=== PATIENT | male | born 1955 | race Caucasian/White ===

== ENCOUNTER 2017-05-18 18:38 | Inpatient (IN) | payer BC ==
[~2017-05-18] VITALS: Ht 185.4 cm; Wt 149.1 kg
[2017-05-18] VITALS (12 sets, daily range): BP systolic 70–97; BP diastolic 51–75; PULSE 71–83; TEMP 36.5; O2SAT 97–100; Ht 185.4 cm; Wt 149.1 kg
[~2017-05-18 18:38] MED LIST: AMLO-114 PO; DVN/160 PO; INDO50CA97 PO; METO1TAB31 PO; VARD20TA PO
[2017-05-18] MEDS ORDERED: SODIUM CHLORIDE 0.9% 1000ML 1,000 ML IV STA (18:42)
[2017-05-18] MEDS ORDERED: PROPOFOL IV EMULSION 10 MG/ML 100 ML VIAL IV ONE (18:53)
[2017-05-18] MEDS ORDERED: TERB250T47 PO (18:55)
[2017-05-18] MEDS ORDERED: ALLO300T2 PO (18:55)
[2017-05-18] MEDS ORDERED: AMLO-110 PO (18:55)
[2017-05-18] MEDS ORDERED: FENTANYL CITRATE INJ 50 MCG/1 ML 2 ML VIAL ONE (18:56)
[2017-05-18] MEDS ORDERED: NiCARDipine HCL INJ 2.5 MG/ML 10 ML AMP ONE (18:56)
[2017-05-18] MEDS ORDERED: MIDAZOLAM HCL 1 MG/ML 2ML VIAL ONE (18:56)
[2017-05-18] MEDS ORDERED: HEPARIN SOD (PORCINE) 1000 UNIT/ML 10 ML VIAL ONE ×2 (18:56→19:47)
[2017-05-18 18:57] LABS: HEMATOCRIT 44.1 % (42-52); MEAN CELL VOLUME 97.8 fL (80-100); MEAN CORPUSCULAR HEMOGLOBIN 33.5 pg (25-34); MEAN CORPUSCULAR HGB CONC 34.2 g/dl (32-36); MEAN PLATELET VOLUME 10.2 fL (7.4-10.4); PLATELET COUNT 207 K/uL (130-400); RED BLOOD COUNT 4.51 M/uL (4.7-6.1); WHITE BLOOD COUNT 17.52 K/uL (4.8-10.8)
[2017-05-18] MEDS ORDERED: NITROGLYCERIN/D5W 100MCG/ML 20ML SYR ONE (18:57)
[2017-05-18] MEDS ORDERED: PROPOFOL IV EMULSION 10 MG/ML 100 ML VIAL IV PRN (19:00)
[2017-05-18] MEDS ORDERED: OPTIRAY 320 IV PRN (19:00)
[2017-05-18 19:16] LABS: ALT/SGPT 260 U/L (12-78); BASO % 0.2 %; BASO ABS # 0.03 K/uL (0-0.2); BLOOD UREA NITROGEN 17 mg/dl (7-18); BUN/CREATININE RATIO 12.4 (10-20); CALCIUM 8.9 mg/dl (8.5-10.1); CARBON DIOXIDE 19 mmol/L (21-32); CHLORIDE 106 mmol/L (98-107); COMPLETE YES; EOS % 0.8 %; GLUCOSE 267 mg/dl (70-99); IG% 2.4 %; LYMPH % 26.9 %; LYMPH ABS # 4.71 K/uL (1.2-3.4); MONO % 5.4 %; NEUT % 64.3 %; POTASSIUM 3.9 mmol/L (3.5-5.1); SODIUM 141 mmol/L (136-145)
[2017-05-18 19:19] LABS: ALKALINE PHOSPHATASE 66 U/L (45-117); AST/SGOT 291 U/L (15-37)
[2017-05-18 19:21] LABS: PARTIAL THROMBOPLASTIN RATIO 0.9; PROTHROMBIN TIME (PATIENT) 10.3 SECONDS (9.0-12.0)
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
[2017-05-18] MEDS ORDERED: DOPamine 400MG / 250ML D5W ONE (19:45)
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
[2017-05-18] MEDS ORDERED: EPTIFIBATIDE 0.75 MG/ML 75MG VIAL IV ONE (20:03)
[2017-05-18] MEDS ORDERED: EPTIFIBATIDE 2 MG/ML 10 ML VIAL IV ONE (20:03)
[2017-05-18] MEDS ORDERED: PHENYLEPHRINE HCL INJ 10 MG/ML VIAL ONE (20:27)
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
[2017-05-18] MEDS ORDERED: CLOPIDOGREL BISULFATE 300 MG TAB PO STA ×3 (21:18→23:32)
[2017-05-18] MEDS ORDERED: PHENYLEPHRINE HCL INJ 20 MG in DEXTROSE 5% 500ML 500 ML IV PRN ×2 (21:18→22:30)
[2017-05-18] MEDS ORDERED: ASPIRIN 81 MG CHEW PO STA (21:18)
[2017-05-18] MEDS ORDERED: ONDANSETRON INJ 2 MG/ML 2 ML VIAL IV PRN (21:30)
[2017-05-18] MEDS ORDERED: EPTIFIBATIDE BOLUS / DRIP IV ONE (21:30)
[2017-05-18] MEDS ORDERED: ATORVASTATIN 40 MG TAB NG SCH (21:30)
[2017-05-18] MEDS ORDERED: ATROPINE SULFATE 0.1 MG/ML 5ML SYR IV PRN (21:30)
[2017-05-18] MEDS ORDERED: ATORVASTATIN 40 MG TAB PO STA (21:37)
[2017-05-18] MEDS ORDERED: ASPIRIN 81 MG CHEW NG STA (21:38)
[2017-05-18] MEDS ORDERED: LANSOPRAZOLE SOLUTAB 30 MG PO ONE (21:39)
[2017-05-18] MEDS ORDERED: MIDAZOLAM 125MG/250ML D5W 250 ML IV PRN (21:41)
[2017-05-18] MEDS ORDERED: PHENYLEPHRINE HCL INJ 20 MG in DEXTROSE 5% 500ML 500 ML IV STA (21:41)
[2017-05-18] MEDS ORDERED: DOPamine 400MG / D5W 400 MG IV STA (21:41)
[2017-05-18] MEDS ORDERED: FENTANYL 1250MCG/250ML NSS 250 ML IV SCH (21:45)
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
[2017-05-18 21:54] LABS: CHOLESTEROL 154 mg/dl (0-200); CHOLESTEROL/HDL RATIO 4.7; HDL CHOLESTEROL 33 mg/dl; TRIGLYCERIDES 349 mg/dl (0-150); VERY LOW DENSITY LIPOPROT CALC 70 mg/dl
[2017-05-18] MEDS ORDERED: FENTANYL CITRATE 1250MCG/250ML NSS ONE (21:56)
[2017-05-18] MEDS: NSS + 20MEQ KCL 1000ML 1,000 ML IV SCH (21:57)
[2017-05-18] MEDS ORDERED: VECURONIUM BROMIDE 10 MG VIAL IV PRN (22:00)
[2017-05-18 22:08] LABS: ISTAT ALLEN TEST Pass; ISTAT ARTERIAL BLOOD GAS HCO3 22 meq/L (19-24); ISTAT ARTERIAL BLOOD GAS PCO2 44 mmHg (35-46); ISTAT ARTERIAL BLOOD GAS PO2 155 mmHg (80-95); ISTAT ARTERIAL BLOOD GAS pH 7.31 (7.35-7.45); ISTAT CARBON DIOXIDE 24 mEq/l (24-31); ISTAT DELIVERY SYSTEM Ventilator; ISTAT FIO2 100 %; ISTAT PEEP 5; ISTAT RATE 23; ISTAT SITE L Radial; VE 12.3; Vt 600
[2017-05-18] MEDS ORDERED: PIPERACILL/TAZOBAC IV 4.5 GM in DEXTROSE 5% 100ML IV STA (22:10)
[2017-05-18] MEDS: FENTANYL 1250MCG/250ML NSS IV PRN (22:15)
[2017-05-18] MEDS ORDERED: DOPAMINE 400MG / D5W IV PRN (22:15)
[2017-05-18] MEDS ORDERED: PIPERACILL/TAZOBAC CONSULT ACTIVE PRN (22:15)
[2017-05-18 22:16] LABS: BASO % 0.1 %; BASO ABS # 0.01 K/uL (0-0.2); EOS % 0.1 %; IG% 1.4 %; LYMPH % 7.9 %; LYMPH ABS # 1.08 K/uL (1.2-3.4); MEAN CELL VOLUME 96.4 fL (80-100); MEAN CORPUSCULAR HEMOGLOBIN 33.9 pg (25-34); MONO % 8.7 %; NEUT % 81.8 %; PLATELET COUNT 218 K/uL (130-400); RED BLOOD COUNT 4.46 M/uL (4.7-6.1); WHITE BLOOD COUNT 13.74 K/uL (4.8-10.8)
[2017-05-18 22:20] LABS: COMPLETE YES; MEAN CORPUSCULAR HGB CONC 35.1 g/dl (32-36)
[2017-05-18] MEDS ORDERED: RANITIDINE IV 50 MG in DEXTROSE 5% 100ML 100 ML IV STA (22:37)
[2017-05-18 22:41] LABS: BUN/CREATININE RATIO 15.6 (10-20); CALCIUM 8.7 mg/dl (8.5-10.1); CREATININE 1.2 mg/dl (0.60-1.40); POTASSIUM 3.9 mmol/L (3.5-5.1)
[2017-05-18 22:42] LABS: MAGNESIUM 2.4 mg/dl (1.8-2.4); THYROID STIMULATING HORMONE 11.4 uIu/ml (0.300-4.500)
[2017-05-18] MEDS ORDERED: VANCOMYCIN INJ 2,800 MG in SODIUM CHLORIDE 0.9% 500ML 500 ML IV SCH (23:00)
[2017-05-18] MEDS ORDERED: ASPIRIN 324 MG CHEW ONE (23:34)
[2017-05-19] VITALS (33 sets, daily range): BP systolic 87–113; BP diastolic 44–79; PULSE 70–98; TEMP 36.7–37.4; O2SAT 94–100
[2017-05-19] MEDS ORDERED: PIPERACILL/TAZOBAC IV 3.375 GM in DEXTROSE 5% 100ML 100 ML IV SCH ×2
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
[2017-05-19] MEDS ORDERED: VANCOMYCIN CONSULT ACTIVE PRN (01:30)
[2017-05-19] MEDS: PIPERACILL/TAZOBAC IV 4.5 GM in DEXTROSE 5% 100ML IV SCH ×3 (02:12→18:51)
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
[2017-05-19 05:30] LABS: BASO % 0.1 %; BASO ABS # 0.01 K/uL (0-0.2); COMPLETE YES; EOS % 0.2 %; HEMATOCRIT 39.3 % (42-52); IG% 0.9 %; LYMPH % 10.1 %; LYMPH ABS # 1.19 K/uL (1.2-3.4); MEAN CORPUSCULAR HEMOGLOBIN 32.7 pg (25-34); MEAN CORPUSCULAR HGB CONC 33.3 g/dl (32-36); MEAN PLATELET VOLUME 10.1 fL (7.4-10.4); MONO % 7.5 %; NEUT % 81.2 %; PLATELET COUNT 226 K/uL (130-400); RED BLOOD COUNT 4.01 M/uL (4.7-6.1); WHITE BLOOD COUNT 11.74 K/uL (4.8-10.8)
[2017-05-19] MEDS ORDERED: RANITIDINE IV 50 MG in DEXTROSE 5% 100ML 100 ML IV SCH (06:00)
[2017-05-19 06:06] LABS: BUN/CREATININE RATIO 20.2 (10-20); POTASSIUM 4.3 mmol/L (3.5-5.1)
[2017-05-19] MEDS ORDERED: PERFLUTREN LIPID MICROSPHERE (DEFINITY) IV ONE (06:38)
[2017-05-19] MEDS: PHENYLEPHRINE HCL INJ 40 MG in DEXTROSE 5% 500ML 500 ML IV PRN ×2 (07:30→15:21)
[2017-05-19] MEDS: FENTANYL 1250MCG/250ML NSS IV PRN (07:31)
[2017-05-19 08:02] LABS: ESTIMATED AVERAGE GLUCOSE 140 mg/dl; HA1C FLAG Normal (Normal)
--- NOTE | 2017-05-19 08:19 | DIAGNOSTIC IMAGING REPORT ---
CHEST ONE VIEW PORTABLE CLINICAL HISTORY: Post catheterization. COMPARISON STUDY: Chest CT May 18, 2017. FINDINGS: The tip of the endotracheal tube is 5.3 cm above the bassem. The tip of the nasogastric tube is below the lower aspect of this image but at least within the body of the stomach. There is no pneumothorax. Cardiomegaly is unchanged. Exam is compromised by motion artifact. There is no pneumothorax. There is no radiographic evidence of pulmonary edema. There are bibasilar opacities. There is an equivocal left pleural effusion which is likely due to epicardial fat as shown on CT. IMPRESSION: 1. Tip of endotracheal tube 5.3 cm above the bassem. 2. Bibasilar opacities which favor atelectasis, similar to prior CT of May 18, 2017. 3. No radiographic evidence of pulmonary edema. Stable cardiomegaly. Electronically signed by: Demetri Carey M.D. 05/19/2017 8:18 AM Dictated Date/Time: 05/19/2017 8:14 AM
[2017-05-19] MEDS: PANTOprazole INJ 40 MG in SYRINGE 0 ML IV SCH ×2 (08:50→21:16)
[2017-05-19] MEDS: ASPIRIN 81 MG ECTAB PO SCH (08:51)
[2017-05-19] MEDS: ATORVASTATIN 40 MG TAB PO SCH (08:51)
[2017-05-19] MEDS: CLOPIDOGREL BISULFATE 75 MG TAB PO SCH (08:52)
[2017-05-19] MEDS ORDERED: VANCOMYCIN INJ 1,000 MG in SODIUM CHLORIDE 0.9% 250ML 250 ML IV SCH (09:00)
[2017-05-19] MEDS ORDERED: LANSOPRAZOLE SOLUTAB 30 MG PO SCH (09:00)
[2017-05-19] MEDS ORDERED: ARTIFICIAL TEARS OP SOLN OP SCH ×2 (09:00)
[2017-05-19] MEDS ORDERED: CHLORHEXIDINE GLUCONATE 0.12% 480 ML MT SCH (09:00)
[2017-05-19 10:05] LABS: ISTAT HEMOGLOBIN 15.3 g/dl (14.0-18.0); ISTAT IONIZED CALCIUM 1.22 mmol/l (1.12-1.32)
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
[2017-05-19] MEDS: EPTIFIBATIDE INJ 75 MG PREMIXED IV SCH ×2 (10:40)
[2017-05-19 10:49] LABS: ISTAT ALLEN TEST Pass; ISTAT ARTERIAL BLOOD GAS HCO3 24 meq/L (19-24); ISTAT ARTERIAL BLOOD GAS PCO2 48 mmHg (35-46); ISTAT ARTERIAL BLOOD GAS PO2 93 mmHg (80-95); ISTAT ARTERIAL BLOOD GAS pH 7.31 (7.35-7.45); ISTAT CARBON DIOXIDE 26 mEq/l (24-31); ISTAT DELIVERY SYSTEM Ventilator; ISTAT FIO2 50 %; ISTAT PEEP 5; ISTAT RATE 20; ISTAT SITE L Radial; VE 10.7; Vt 600
--- NOTE | 2017-05-19 10:51 | Endo History and Physical ---
History & Physical Date of Service: May 19, 2017. Chief Complaint: GI bleed Referring Physician: History of Present Illness NG drainage with yancy blood. Pt intubated. Past Surgical History Hx Cardiac Surgery: No Hx Abdominal Surgery: No Hx Post-Op Nausea and Vomiting: No Hx Cancer Surgery: Yes (SKIN CANCER REMOVED FROM FACE.) Hx Thoracic Surgery: No Hx Orthopedic: Yes (KNEE PROCEDURE) Hx Urinary Tract Surgery: Yes (CYSTO WITH STENT) Social History Smoking Status: Never Smoker Hx Substance Use: No Hx Alcohol Use: Yes (SOCIAL. BEER [employer] WHISKEY) Allergies Coded Allergies: No Known Allergies (Unverified , 05/18/17) Current Medications Reported Home Medications Medications Dose Route/Sig Max Daily Dose Days Date Category Dose Instructions Terbinafine Hcl 250 Mg Tab 250 Mg PO DAILY 05/18/17 Reported Zyloprim (Allopurinol) 300 Mg Tab 300 Mg PO DAILY 05/18/17 Reported Norvasc (Amlodipine Besylate) 5 Mg Tab 5 Mg PO DAILY 05/18/17 Reported Indocin (Indomethacin) 50 Mg Cap 50 Mg PO TID PRN 02/03/13 Reported WITH FOOD UNTIL PAIN RESOLVES Levitra (Vardenafil Hcl) 20 Mg Tab 20 Mg PO DIRECTED 02/03/13 Reported Toprol Xl (Metoprolol Succinate) 25 Mg Tab 25 Mg PO DAILY 02/03/13 Reported Diovan (Valsartan) 160 Mg Tab 160 Mg PO DAILY 02/03/13 Reported Vital Signs Weight (Kilograms): 156.600 Height (Feet): 6 Height (Inches): 1.00 Date Time Temp Pulse Resp B/P (MAP) Pulse Ox O2 Delivery O2 Flow Rate FiO2 05/19/17 07:24 60 05/19/17 06:46 73 20 99/68 (86) 99 05/19/17 06:31 76 20 89/60 (69) 96 05/19/17 06:16 73 20 93/62 (71) 99 05/19/17 06:01 74 20 87/57 (70) 97 05/19/17 05:46 75 20 94/59 (76) 98 05/19/17 05:31 75 20 93/63 (67) 100 05/19/17 05:23 60 05/19/17 05:16 73 20 89/61 (67) 100 05/19/17 05:01 75 20 91/64 (70) 99 05/19/17 04:46 75 20 93/60 (70) 99 05/19/17 04:31 75 20 104/70 (77) 100 05/19/17 04:16 76 20 105/77 (82) 99 05/19/17 04:01 75 20 113/74 (81) 99 05/19/17 04:00 80 05/19/17 04:00 80 05/19/17 04:00 36.7 05/19/17 03:46 73 20 101/67 (74) 99 05/19/17 03:32 73 20 104/44 (73) 100 05/19/17 03:16 73 20 95/69 (80) 99 05/19/17 03:01 74 20 94/65 (75) 100 05/19/17 02:46 75 20 96/69 (78) 100 05/19/17 02:31 74 20 88/68 (73) 99 05/19/17 02:16 74 20 91/69 (78) 99 05/19/17 02:10 75 20 88/67 (74) 99 Mechanical Ventilator 80 05/19/17 01:46 75 20 91/62 (71) 99 05/19/17 01:35 74 20 98/65 (75) 98 05/19/17 01:16 72 20 88/63 (72) 99 05/19/17 01:01 72 22 91/68 (73) 99 05/19/17 00:46 73 21 93/68 (78) 99 05/19/17 00:31 70 20 89/63 (70) 99 05/19/17 00:16 74 20 88/62 (69) 100 05/19/17 00:01 80 05/19/17 00:01 71 21 88/61 (73) 99 05/19/17 00:01 80 05/18/17 23:46 71 20 93/63 (71) 99 05/18/17 23:30 75 20 86/59 (69) 97 05/18/17 23:27 80 05/18/17 23:24 78 20 78/62 (67) 98 05/18/17 23:16 78 21 78/56 (58) 98 05/18/17 23:01 76 20 88/68 (74) 99 05/18/17 22:46 78 20 84/66 (71) 98 05/18/17 22:31 75 20 86/64 (74) 98 05/18/17 22:24 75 20 84/57 (64) 98 05/18/17 22:16 90 05/18/17 22:15 75 20 74/55 (59) 98 05/18/17 21:55 78 20 83/59 (62) 100 05/18/17 21:15 36.5 83 24 97/75 99 Mechanical Ventilator 100 05/18/17 21:05 91 16 104/65 (78) 100 Mechanical Ventilator 05/18/17 20:50 100 16 112/65 (81) 100 Mechanical Ventilator 05/18/17 20:40 100 05/18/17 19:00 96 16 119/109 95 Mechanical Ventilator 05/18/17 18:50 132 05/18/17 18:40 96 16 160/111 95 Mechanical Ventilator 05/18/17 18:40 97 Mechanical Ventilator Physical Exam General Appearance: WD/WN Respiratory/Chest: Respiratory effort: pertinent finding (Patient intubated) Cardiovascular: Heart Auscultation: RRR, pertinent finding (Recent NE) Abdomen: Bowel Sounds: normal Inspection & Palpation: soft, no masses Assessment and Plan EGD in ICU with patient intubated.
[2017-05-19] MEDS ORDERED: PANTOprazole INJ 40 MG in SYRINGE 0 ML IV SCH (11:00)
--- NOTE | 2017-05-19 11:35 | ECHOCARDIOGRAM REPORT ---
*NOTICE TO RECEIVING CONSTITUTION PARTY AGENCY This information is strictly Confidential and protected under [place] law. [place] law prohibits you from making any further disclosure of this information unless further disclosure is expressly permitted by the written consent of the person to whom it pertains or is authorized by law. A general authorization for the release of medical or other information is not sufficient for this purpose. Hospital accepts no responsibility if the information is made available to any other person, INCLUDING THE PATIENT. Interpretation Summary * Name: MINERVA BARRIGA Study Date: 05/19/2017 06:11 AM BP: 105/77 mmHg * [facility] HR: 75 * : 1955 (M/d/yyyy) Gender: Male Height: 75 in * Age: 61 yrs Ethnicity: CA Weight: 359 lb * Ordering Physician: Ken Birmingham MD, [facility] * Performed By: Vickie Quintanilla * * Reason For Study: AMI * BSA: 2.8 m2 * -- Conclusions -- * Image quality was sub-optimal and limited views were obtained. * The left ventricle is mildly dilated. * There is mild asymmetric left ventricular hypertrophy. * Left ventricular systolic function is mildly reduced. * There are regional wall motion abnormalities as specified. * The right ventricle is moderately dilated. * The right ventricular systolic function is normal as assessed by tricuspid annular plane systolic excursion (TAPSE) (normal >1.5 cm). Procedure Details * A complete two-dimensional transthoracic echocardiogram was performed (2D, M-mode, Doppler and color flow Doppler). * The study was technically difficult. * There were technical limitations due to patient'ssupine positioning while on mechanical ventilation * A contrast injection of Definity was performed to improve assessment of LV function. * Contrast was injected into an intravenous site in the right arm. * One vial of Definity ultrasound contrast was diluted in normal saline to a total volume of 10 ml. A total of '4' ml of solution was administered during imaging. * Lot # [id number] of Definity utilized for procedure. * Expiration date 05/28. Left Ventricle * The left ventricle is mildly dilated. * There is mild asymmetric left ventricular hypertrophy. * Ejection Fraction = 45-50%. * Left ventricular systolic function is mildly reduced. * There are regional wall motion abnormalities as specified. * Septum and portions of the anterior wall appear hypokinetic. Inferior wall not well visualized. Right Ventricle * The right ventricle is moderately dilated. * The right ventricular systolic function is normal as assessed by tricuspid annular plane systolic excursion (TAPSE) (normal >1.5 cm). Atria * The left atrium is not well visualized. * Right atrium not well visualized. Mitral Valve * The mitral valve is grossly normal. * Significant mitral regurgitation is absent. Tricuspid Valve * The tricuspid valve is not well visualized. Aortic Valve * The aortic valve is not well visualized. * No hemodynamically significant valvular aortic stenosis. * There is no significant aortic regurgitation. Pericardium/Pleural * There is no pericardial effusion. MMode 2D Measurements and Calculations IVSd 0.58 cm IVSs 1.4 cm LVIDd 5.8 cm LVIDs 4.4 cm LVPWd 1.5 cm LVPWs 1.7 cm IVS/LVPW 0.39 FS 24.2 % EDV(Teich) 169.4 ml ESV(Teich) 89.1 ml EF(Teich) 47.4 % EDV(cubed) 199.5 ml ESV(cubed) 87.0 ml EF(cubed) 56.4 % % IVS thick 148.8 % % LVPW thick 11.7 % LV mass(C)d 244.5 grams LV mass(C)dI 86.9 grams/m\S\2 LV mass(C)s 281.6 grams LV mass(C)sI 100.1 grams/m\S\2 CO(Teich) 5.9 l/min CI(Teich) 2.1 l/min/m\S\2 SV(Teich) 80.3 ml SI(Teich) 28.5 ml/m\S\2 CO(cubed) 8.3 l/min CI(cubed) 3.0 l/min/m\S\2 SV(cubed) 112.6 ml SI(cubed) 40.0 ml/m\S\2 asc Aorta Diam 3.6 cm LVOT diam 2.1 cm LVOT area 3.4 cm\S\2 LVAd ap4 33.1 cm\S\2 LVLd ap4 8.6 cm EDV(MOD-sp4) 105.0 ml LVAs ap4 20.6 cm\S\2 LVLs ap4 6.7 cm ESV(MOD-sp4) 54.8 ml EF(MOD-sp4) 47.8 % CO(MOD-sp4) 3.7 l/min CI(MOD-sp4) 1.3 l/min/m\S\2 SV(MOD-sp4) 50.2 ml SI(MOD-sp4) 17.8 ml/m\S\2 Doppler Measurements and Calculations MV E max teagan 51.4 cm/sec MV A max teagan 58.3 cm/sec MV E/A 0.88 MV dec time 0.26 sec Ao V2 max 144.6 cm/sec Ao max PG 8.4 mmHg Ao max PG (full) 6.8 mmHg MILA(V,A) 1.5 cm\S\2 MILA(V,D) 1.5 cm\S\2 LV V1 max PG 1.6 mmHg LV V1 max 62.7 cm/sec PA V2 max 60.6 cm/sec PA max PG 1.5 mmHg PI end-d teagan 124.9 cm/sec
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
[2017-05-19] MEDS: VANCOMYCIN INJ 2,600 MG in SODIUM CHLORIDE 0.9% 500ML 500 ML IV SCH ×2 (13:21→22:48)
[2017-05-19] MEDS ORDERED: Integrelin infusion --> STOP ORDER ONE (15:00)
[2017-05-19] MEDS: NSS + 20MEQ KCL 1000ML 1,000 ML IV SCH (15:20)
--- NOTE | 2017-05-19 15:26 | CARDIOLOGY PROGRESS NOTE ---
DATE: 05/19/2017 SUBJECTIVE: The patient was seen by me today in his intensive care unit room. He is currently being weaned off sedation in attempts at extubating him. He was awake at the time of my exam. He was able to answer questions by nodding his head. He denies any chest pain or dyspnea. He denies abdominal pain or nausea. He denies any pains. CURRENT MEDICATIONS: Include vancomycin 2600 mg IV q. 12 hours, aspirin 81 mg daily, clopidogrel 75 mg daily, atorvastatin 80 mg daily, Peridex oral solution 15 mL daily, artificial tears daily, pantoprazole 40 mg IV b.i.d., intravenous phenylephrine, piperacillin/tazobactam 4.5 grams IV q. 8 hours, intravenous fentanyl, intravenous Versed and intravenous Integrilin. The Integrilin is scheduled to be discontinued at 03:00 p.m. today. ALLERGIES AND ADVERSE DRUG REACTIONS: None. Intake and output today 3603/1450. Monitor reveals sinus rhythm. Monitor history since admission to the intensive care unit reveals 2 episodes of nonsustained accelerated idioventricular rhythm and ventricular tachycardia. No sustained ventricular arrhythmias. Occasional premature ventricular beat. Rare ventricular couplets. PHYSICAL EXAMINATION: CURRENT VITAL SIGNS: Revealed pulse 80, pulse oximetry 100%, and blood pressure 110/71. GENERAL: The patient is lying in his bed. He still endotracheally intubated. He is awake and responsive. He appears to be in no distress. NECK: No obvious jugular venous distention. Difficult to evaluate jugular venous pressure secondary to neck size. LUNGS: No rales or wheezes anterolaterally. No rhonchi. HEART: Distant heart sounds. Regular rate and rhythm. S1 and S2 normal. No S3 or S4. No murmur or rub. ABDOMEN: Obese. Soft. Nontender. No palpable masses or organomegaly. EXTREMITIES: Right radial catheterization site without bleeding. The right radial pulse strongly palpable. No evidence for arterial insufficiency in right hand. 1+ pretibial edema bilaterally. NEUROLOGIC: The patient is moving all extremities. He is awake and alert. DIAGNOSTIC STUDIES: Echocardiogram performed today and reviewed by me shows mildly reduced overall left ventricular systolic function. The ejection fraction approximately 50%. No definite inferior wall or posterolateral wall motion abnormalities. Moderate right ventricular dilatation. On visual interpretation, the RV systolic function appears to be reduced. However, the tricuspid annular plain systolic excursion was normal. The study was technically difficult. Tricuspid valve poorly visualized. Inferior vena cava poorly visualized. Electrocardiogram performed post procedure last evening showed normal sinus rhythm, incomplete right bundle branch block, left axis deviation, left anterior fascicular block, and slight ST segment elevation in the inferior leads. Electrocardiogram performed this morning with normal sinus rhythm, left axis deviation, inferior HI, and poor R-wave progression in V1-V6. Nonspecific ST and T wave abnormalities. LABORATORY DATA: Today with WBC 11.74, hemoglobin 13.1, hematocrit 39.3, and platelet count 226. Metabolic profile with sodium 141, potassium 4.2, chloride 109, carbon dioxide 24, BUN 20, creatinine 1.0, and random glucose 157. Peak troponin I was at 05:06 a.m. this morning. It was 24. Troponin I at 01:17 p.m. today is 20.9. TSH 11.400. Lipid profile performed yesterday with triglycerides 349, total cholesterol 154, direct LDL 90, and HDL 33. Hemoglobin A1c 6.5. EGD was performed today by Dr. Wharton. It revealed clotted blood in the gastric fundus. It was felt that the patient had a Dieulafoy lesion with no bleeding. The area was injected with epinephrine. Also, cautery performed. Duodenum examined was normal. No active bleeding was noted. ASSESSMENT: 1. Status post acute inferior myocardial infarction secondary to total proximal PDA occlusion. Successful intervention to the PDA occlusion. Deployment of 2 drug-eluting stents. 2. Cardiac arrest complicating initial presentation. Successful out of hospital resuscitation and defibrillation. Since admission, no sustained ventricular arrhythmias. Nonsustained ventricular arrhythmias have been noted. 3. No evidence of any significant atrioventricular block. 4. Borderline low blood pressure. The patient has been on sedation. This is currently being weaned and discontinued. The medications may be contributing to his hypertension. He is still on low dose phenylephrine. 5. GI bleeding. EGD results as above. Hemoglobin relatively stable since admission. Platelet count is stable. 6. No evidence of congestive heart failure on exam in regards to pulmonary vascular congestion. Chest x-ray today reviewed by me. No evidence of congestive heart failure. Poor inspiratory effort. 7. Elevated hemoglobin A1c. 8. Elevated triglyceride level and low HDL. 9. Echocardiogram with right ventricular dilatation and probable systolic dysfunction. Suspect the patient has underlying significant obstructive sleep apnea. 10. Good overall left ventricular systolic function. RECOMMENDATIONS: 1. Continue aspirin and clopidogrel. 2. Continue atorvastatin. 3. If his blood pressure is stable after discontinuation of intravenous sedation, discontinue the phenylephrine. 4. Ultimately would like to discharge the patient on beta giovanny and angiotensin receptor giovanny therapy. He was on an angiotensin receptor giovanny therapy and beta giovanny therapy at the time of admission. 5. Extubation is being carried under the direction of Dr. Bauer. CINTHIA
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
[2017-05-19 15:46] LABS: HEMATOCRIT 32.7 % (42-52)
[2017-05-19 16:12] LABS: ISTAT ALLEN TEST Pass; ISTAT ARTERIAL BLOOD GAS HCO3 23 meq/L (19-24); ISTAT ARTERIAL BLOOD GAS PCO2 42 mmHg (35-46); ISTAT ARTERIAL BLOOD GAS PO2 69 mmHg (80-95); ISTAT ARTERIAL BLOOD GAS pH 7.34 (7.35-7.45); ISTAT CARBON DIOXIDE 24 mEq/l (24-31); ISTAT DELIVERY SYSTEM Ventilator; ISTAT FIO2 40 %; ISTAT PEEP 5; ISTAT SITE L Radial
[2017-05-20] VITALS (10 sets, daily range): BP systolic 111–134; BP diastolic 62–80; PULSE 77–95; TEMP 36.8–37; O2SAT 93–99
[2017-05-20] MEDS: PIPERACILL/TAZOBAC IV 4.5 GM in DEXTROSE 5% 100ML IV SCH ×4 (01:45→18:25)
[2017-05-20] MEDS: NSS + 20MEQ KCL 1000ML 1,000 ML IV SCH (01:45)
[2017-05-20 05:51] LABS: BASO % 0.2 %; BASO ABS # 0.02 K/uL (0-0.2); COMPLETE YES; EOS % 1.6 %; HEMATOCRIT 32.1 % (42-52); IG% 0.4 %; LYMPH % 11.8 %; LYMPH ABS # 1.06 K/uL (1.2-3.4); MEAN CELL VOLUME 97.6 fL (80-100); MEAN CORPUSCULAR HEMOGLOBIN 32.5 pg (25-34); MEAN CORPUSCULAR HGB CONC 33.3 g/dl (32-36); MEAN PLATELET VOLUME 9.7 fL (7.4-10.4); MONO % 10.3 %; NEUT % 75.7 %; PLATELET COUNT 143 K/uL (130-400); RED BLOOD COUNT 3.29 M/uL (4.7-6.1)
[2017-05-20 06:37] LABS: BUN/CREATININE RATIO 14.7 (10-20); CALCIUM 7.6 mg/dl (8.5-10.1); CREATININE 0.87 mg/dl (0.60-1.40); POTASSIUM 3.7 mmol/L (3.5-5.1)
[2017-05-20] MEDS: ATORVASTATIN 40 MG TAB PO SCH (09:02)
[2017-05-20] MEDS: ASPIRIN 81 MG ECTAB PO SCH (09:02)
[2017-05-20] MEDS: CLOPIDOGREL BISULFATE 75 MG TAB PO SCH (09:03)
[2017-05-20] MEDS: PANTOprazole INJ 40 MG in SYRINGE 0 ML IV SCH (09:06)
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
[2017-05-20] MEDS ORDERED: NURSING VERBAL MED ORDER ONE (09:45)
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
[2017-05-20] MEDS ORDERED: VANCOMYCIN TROUGH SCH (10:30)
[2017-05-20] MEDS ORDERED: OXYCODONE/ACETAMINOPHEN 5-325 TAB PO PRN (10:30)
[2017-05-20] MEDS ORDERED: OXYCODONE/ACETAMINOPHEN 5-325 TAB ONE (10:33)
[2017-05-20] MEDS ORDERED: METOPROLOL SUCC 50MG EXT REL TAB PO ONE (11:30)
--- NOTE | 2017-05-20 11:40 | CARDIOLOGY PROGRESS NOTE ---
DATE: 05/20/2017 DATE: 05/20/2017 SUBJECTIVE: The patient was seen by me this morning in the intensive care unit room. He was successfully extubated yesterday afternoon. The patient is awake and alert, sitting in a chair by his bedside. He has no recollection of the events prompting his admission. His only memory of this hospitalization since yesterday afternoon when he was weaned off sedation and extubated. He denies any chest pain or other anginal type pains. No palpitations, lightheadedness, or syncope complaints since extubation yesterday. He denies any abdominal pain or nausea. No pain at his right radial catheterization site. No complaint of fevers or chills. No pulmonary complaints. He does complain of left lower leg pain. He did have an interosseous catheter in his left tibia inserted at the time of his resuscitation by EMS. No symptoms of bleeding. CURRENT MEDICATIONS: Pantoprazole 40 mg p.o. b.i.d., Percocet 5/325 one q. 6 hours p.r.n. pain, aspirin 81 mg daily, clopidogrel 75 mg daily, atorvastatin 80 mg daily, piperacillin/tazobactam 4.5 grams IV q. 8 hours. ALLERGIES AND ADVERSE DRUG REACTIONS: None. Monitor history over the past 24 hours reviewed by me. Sinus rhythm with occasional premature ventricular beat. PHYSICAL EXAMINATION: CURRENT VITAL SIGNS: With pulse 93. Monitor reveals sinus rhythm. Blood pressure 131/79. Pulse oximetry 93%. GENERAL APPEARANCE: Shows him to be in no distress. HEAD: Abrasion on the occiput of his head. No active bleeding. Dressing removed by me. There is actually no full skin thickness laceration. NECK: Thick. Unable to evaluate jugular venous pressure. LUNGS: Normal respiratory effort. Clear. No rales or wheezes. HEART: Regular rate and rhythm. S1, S2 normal. No S3 or S4. No murmur or rub. ABDOMEN: Soft. Obese. Periumbilical hernia. No palpable masses or organomegaly. EXTREMITIES: Right radial catheterization site without bleeding. Right radial pulse palpable. 1+ pretibial edema bilaterally. No cyanosis or clubbing. NEUROLOGIC: Awake and alert. He answers questions appropriately. He knows all of his family. He knows he is in the hospital. He can move all extremities. DATA: Electrocardiogram today with sinus rhythm, left axis deviation, incomplete right bundle branch block, inferior TX, poor R-wave progression V1 and V3. This could be secondary to lead placement and body habitus. Minor nonspecific ST and T-wave abnormalities. Echocardiogram performed yesterday with LV ejection fraction approximately 50%. LABORATORY DATA: WBC today 9.0, hemoglobin 10.7, hematocrit 32.1, platelet count 143. Metabolic profile -- sodium 140, potassium 3.7, chloride 106, carbon dioxide 28, BUN 13, creatinine 0.87, random glucose 136. Peak troponin I was 24.000. ASSESSMENT: 1. Status post acute inferior myocardial infarction secondary to total proximal patent ductus arteriosus occlusion. Subsequent successful intervention to the PDA occlusion with deployment of 2 drug-eluting stents. 2. No current complaints of any anginal type symptoms. 3. Good overall left ventricular systolic function. No evidence of congestive heart failure on exam. This is in regards to pulmonary vascular congestion. Suspect his pretibial edema is secondary to venous insufficiency. On echo by my interpretation, he also had right ventricular systolic dysfunction. 4. Cardiac arrest secondary to acute occlusion of the patent ductus arteriosus. Successful outpatient resuscitation. Since arrival to the hospital he has had no significant arrhythmias noted. No significant ventricular arrhythmias. No bradyarrhythmias. 5. No evidence of vascular complications at right radial catheterization site. 6. Successful extubation yesterday. He is oxygenating well on nasal cannula oxygen. No current pulmonary complaints. 7. His blood pressure has improved. He was taken off phenylephrine last night. Blood pressure mildly elevated today. 8. The patient had evidence of upper gastrointestinal bleeding when OG-tube was placed. Endoscopy performed yesterday revealed a blood clot in his stomach. No active bleeding was noted. The patient's hemoglobin has decreased since admission. This could reflect GI bleeding. No current complaints of bleeding. 9. Stable renal function post cardiac catheterization and cardiac arrest. RECOMMENDATIONS: 1. From a cardiac standpoint, the patient can be transferred to the telemetry unit. 2. Increase activity. 3. Continue aspirin, clopidogrel, and atorvastatin. 4. Restart beta giovanny therapy. The patient is on beta giovanny therapy at the time of admission. Will also restart angiotensin receptor giovanny therapy. 5. Continue to monitor hemoglobin. 6. The patient had an elevated TSH on labs yesterday. This will be followed up and managed by the hospitalist team. CINTHIA
[2017-05-20] MEDS: OXYCODONE/ACETAMINOPHEN 5-325 TAB PO PRN ×3 (12:30→23:42)
--- NOTE | 2017-05-20 13:46 | DIAGNOSTIC IMAGING REPORT ---
ULTRASOUND LEFT VENOUS DOPP LOWER EXT UNILAT CLINICAL HISTORY: Left lower extremity swelling COMPARISON STUDY: No previous studies for comparison. FINDINGS: Real-time and color flow Doppler imaging were performed. Flow was seen within the femoral, popliteal and calf veins with no intraluminal thrombus demonstrated. The saphenous vein is patent. There is a complex cystic collection located anterior to the proximal knee measuring 41 x 17 x 43 mm. IMPRESSION: 1. No evidence of left lower extremity DVT. 2. Complex cystic collection located anterior to the proximal knee measuring 41 x 17 x 43 mm. Electronically signed by: Andrew Mason M.D. 05/20/2017 1:45 PM Dictated Date/Time: 05/20/2017 1:43 PM
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
[2017-05-20] MEDS: PANTOprazole SOD 40 MG TAB PO SCH (19:46)
[2017-05-21] VITALS (11 sets, daily range): BP systolic 111–145; BP diastolic 61–79; PULSE 77–87; TEMP 36.5–37.6; O2SAT 91–98
[2017-05-21] MEDS: PIPERACILL/TAZOBAC IV 4.5 GM in DEXTROSE 5% 100ML IV SCH ×2 (01:47→09:46)
[2017-05-21 05:28] LABS: BASO % 0.1 %; BASO ABS # 0.01 K/uL (0-0.2); COMPLETE YES; EOS % 1.1 %; HEMATOCRIT 30.2 % (42-52); IG% 0.4 %; LYMPH % 9.5 %; LYMPH ABS # 0.91 K/uL (1.2-3.4); MEAN CELL VOLUME 96.8 fL (80-100); MEAN CORPUSCULAR HEMOGLOBIN 32.4 pg (25-34); MEAN CORPUSCULAR HGB CONC 33.4 g/dl (32-36); MEAN PLATELET VOLUME 10.1 fL (7.4-10.4); MONO % 9.7 %; NEUT % 79.2 %; PLATELET COUNT 138 K/uL (130-400); RED BLOOD COUNT 3.12 M/uL (4.7-6.1); WHITE BLOOD COUNT 9.58 K/uL (4.8-10.8)
[2017-05-21 05:55] LABS: BUN/CREATININE RATIO 11.9 (10-20); CREATININE 0.75 mg/dl (0.60-1.40); POTASSIUM 3.4 mmol/L (3.5-5.1)
[2017-05-21] MEDS: CLOPIDOGREL BISULFATE 75 MG TAB PO SCH (07:58)
[2017-05-21] MEDS: ASPIRIN 81 MG ECTAB PO SCH (07:58)
[2017-05-21] MEDS: ATORVASTATIN 40 MG TAB PO SCH (07:58)
[2017-05-21] MEDS: VALSARTAN 80 MG TAB PO SCH (07:58)
[2017-05-21] MEDS: PANTOprazole SOD 40 MG TAB PO SCH ×2 (07:59→20:16)
[2017-05-21] MEDS: METOPROLOL SUCC 50MG EXT REL TAB PO SCH (07:59)
[2017-05-21] MEDS: OXYCODONE/ACETAMINOPHEN 5-325 TAB PO PRN ×2 (09:46→23:47)
--- NOTE | 2017-05-21 10:50 | DIAGNOSTIC IMAGING REPORT ---
CHEST ONE VIEW PORTABLE CLINICAL HISTORY: pneumonia COMPARISON STUDY: 05/19/2017 FINDINGS: The right-sided PICC catheter is unchanged in position. The endotracheal tube and nasogastric tube have been removed. The heart remains enlarged. Evaluation is difficult due to the patient's large body habitus. There are persistent but improving left basilar airspace opacities.[ IMPRESSION: 1. Interval removal of the endotracheal tube and nasogastric tube 2. Persistent cardiomegaly 3. Improving left basilar airspace opacities Electronically signed by: Andrew Mason M.D. 05/21/2017 10:48 AM Dictated Date/Time: 05/21/2017 10:47 AM
[2017-05-21] MEDS ORDERED: POTASSIUM CHLORIDE 10 MEQ TABCR PO ONE (11:00)
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
[2017-05-21 11:17] LABS: URINE APPEARANCE CLEAR (CLEAR); URINE BILIRUBIN NEG (NEG); URINE COLOR DK YELLOW; URINE NITRITE NEG (NEG); URINE PH 5.5 (4.5-7.5); URINE SPECIFIC GRAVITY 1.024 (1.000-1.030); UROBILINOGEN NEG (NEG); ZZURINE CULT IF INDIC CATH NO
[2017-05-21 11:19] LABS: MANUAL MICROSCOPIC REQUIRED? NO; REVIEW REQ? NO
--- NOTE | 2017-05-21 14:29 | DIAGNOSTIC IMAGING REPORT ---
LEFT KNEE 3 VIEWS CLINICAL HISTORY: left knee pain pain COMPARISON: None. DISCUSSION: Moderate degenerative change all major joint compartments. Prepatellar soft tissue edematous change with evidence for soft tissue calcifications. This potentially relates to calcification of an old posttraumatic hematoma. No acute bony abnormality generalized soft tissue edema. IMPRESSION: Generalized degenerative change with no acute bony pathology. 2. Small joint effusion. 3. Prepatellar soft tissue edematous change with associated dystrophic calcifications. This potentially relates to calcification of an old posttraumatic hematoma. The above report was generated using voice recognition software. It may contain grammatical, syntax or spelling errors. Electronically signed by: Taqueria Norton M.D. 05/21/2017 2:28 PM Dictated Date/Time: 05/21/2017 2:26 PM
[2017-05-21] MEDS: AMOXICILLIN/CLAVULANATE TAB 875 MG TAB PO SCH (16:50)
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
[2017-05-22] VITALS (8 sets, daily range): BP systolic 117–133; BP diastolic 54–90; PULSE 80–95; TEMP 36.7–37.8; O2SAT 92–100
[2017-05-22] MEDS: PANTOprazole SOD 40 MG TAB PO SCH ×2 (08:05→20:10)
[2017-05-22] MEDS: CLOPIDOGREL BISULFATE 75 MG TAB PO SCH (08:05)
[2017-05-22] MEDS: METOPROLOL SUCC 50MG EXT REL TAB PO SCH (08:05)
[2017-05-22] MEDS: ATORVASTATIN 40 MG TAB PO SCH (08:05)
[2017-05-22] MEDS: ALLOPURINOL 300 MG TAB PO SCH (08:05)
[2017-05-22] MEDS: ASPIRIN 81 MG ECTAB PO SCH (08:06)
[2017-05-22] MEDS: VALSARTAN 80 MG TAB PO SCH (08:06)
[2017-05-22] MEDS: AMOXICILLIN/CLAVULANATE TAB 875 MG TAB PO SCH ×2 (08:06→16:55)
--- NOTE | 2017-05-22 10:06 | CARDIOLOGY PROGRESS NOTE ---
DATE: 05/22/2017 SUBJECTIVE: Mr. Olivas is resting comfortably in bedside chair without complaints of chest pain or dyspnea. Slept well last evening. OBJECTIVE: VITAL SIGNS: Blood pressure is 124/75 with a regular pulse of 95. Respiratory rate is 20. The patient is afebrile at 37.4 degrees Celsius. Saturations 94% on room air. NECK: Supple with full carotid upstrokes. There are no carotid bruits. Jugular venous pressure is flat at 90 degrees. There is no thyromegaly. CARDIOVASCULAR: Reveals a regular rhythm with normal S1 and S2. Heart sounds are distant. No obvious murmurs. LUNGS: Clear without rales, rhonchi, or wheezes. ABDOMEN: Obese without bruits. EXTREMITIES: Reveal intact radial artery pulses bilaterally. Trace pretibial edema is noted. DATA: equipment monitor phototypesetting is benign. IMPRESSION AND PLAN: 1. Status post acute inferior wall myocardial infarction -- Dr. Birmingham placed 2 drug-eluting stents in the posterior descending artery. The patient is stable on aspirin, Plavix, atorvastatin, metoprolol succinate, and valsartan. No changes today. 2. Status post cardiac arrest -- patient has recovered well. 3. Hypertension -- controlled. 4. Diabetes mellitus. 5. Obstructive sleep apnea.
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
[2017-05-22 17:11] LABS: CALCIUM 8.3 mg/dl (8.5-10.1); CREATININE 0.88 mg/dl (0.60-1.40); POTASSIUM 3.2 mmol/L (3.5-5.1)
[2017-05-22] MEDS ORDERED: POTASSIUM CHLORIDE 10 MEQ TABCR PO ONE (20:00)
[2017-05-23 04:20] VITALS: BP 133/78; PULSE 82; TEMP 37.3; O2SAT 95
[2017-05-23 06:34] LABS: HEMATOCRIT 30.8 % (42-52); MEAN CELL VOLUME 96.6 fL (80-100); MEAN CORPUSCULAR HGB CONC 33.1 g/dl (32-36); MEAN PLATELET VOLUME 8.9 fL (7.4-10.4); PLATELET COUNT 193 K/uL (130-400); RED BLOOD COUNT 3.19 M/uL (4.7-6.1); WHITE BLOOD COUNT 8.69 K/uL (4.8-10.8)
[2017-05-23 07:43] VITALS: BP 128/84; PULSE 81; TEMP 36.8; O2SAT 97
[2017-05-23 08:03] LABS: BUN/CREATININE RATIO 13.6 (10-20); CALCIUM 8.2 mg/dl (8.5-10.1); CREATININE 0.75 mg/dl (0.60-1.40); POTASSIUM 3.4 mmol/L (3.5-5.1); URIC ACID 5.2 mg/dl (2.6-7.2)
[2017-05-23] MEDS: PANTOprazole SOD 40 MG TAB PO SCH ×2 (08:10→20:23)
[2017-05-23] MEDS: ALLOPURINOL 300 MG TAB PO SCH (08:10)
[2017-05-23] MEDS: CLOPIDOGREL BISULFATE 75 MG TAB PO SCH (08:10)
[2017-05-23] MEDS: ASPIRIN 81 MG ECTAB PO SCH (08:10)
[2017-05-23] MEDS: ATORVASTATIN 40 MG TAB PO SCH (08:10)
[2017-05-23] MEDS: METOPROLOL SUCC 50MG EXT REL TAB PO SCH (08:10)
[2017-05-23] MEDS: VALSARTAN 80 MG TAB PO SCH (08:11)
[2017-05-23] MEDS: AMOXICILLIN/CLAVULANATE TAB 875 MG TAB PO SCH (08:11)
[2017-05-23] MEDS: OXYCODONE/ACETAMINOPHEN 5-325 TAB PO PRN ×2 (08:47→20:24)
[2017-05-23] MEDS ORDERED: OXYC-57 PO (08:57)
[2017-05-23] MEDS ORDERED: PRT40 PO (08:57)
[2017-05-23] MEDS ORDERED: TPRSR50 PO (08:57)
[2017-05-23] MEDS ORDERED: ASPEC81 PO (08:57)
[2017-05-23] MEDS ORDERED: DVN80 PO (08:57)
[2017-05-23] MEDS ORDERED: PLV75 PO (08:57)
--- NOTE | 2017-05-23 09:00 | Discharge Instructions ---
Discharge Instructions Date of Service May 23, 2017. Admission Reason for Admission: Acute Inferior Myocardial Infarction Discharge Discharge Diagnosis / Problem: ACUTE ANTERIOR/INFERIOR MYOCARDIAL INFARCTION Discharge Goals Goal(s): Decrease discomfort, Improve disease control, Diagnostic testing, Therapeutic intervention Activity Recommendations Activity Limitations: as noted below ( TOLERTED ) Exercise/Sports Limitations: as tolerated Shower/Bathe: no limitations . Instructions / Follow-Up Instructions / Follow-Up HOSPITAL FOLLOW UP : NEED REFERRAL FOR SLEEP STUDY FOR OBSTRUCTED SLEEP APNEA /MAY NEED CPAP CARDIOLOGY FOLLOW UP IN 1-2 WEEKS NEED FOLLOW UP WITH ORTHOPEDICS DR VU IN 1-2 WEEKS Home Care: * Take your medications exactly as directed. Don't skip doses. * Remember that recovery after a heart attack takes time. Plan to rest for at lease 4-8 weeks while you recover. Then return to normal activity when your doctor says it's okay. * Ask your doctor about joining a heart rehabilitation program. * Tell your doctor if you are feeling depressed. Feelings of sadness are common after a heart attack, but it is important that you speak to someone if you are feeling overwhelmed by these feelings. * If you are having chest pain, call 911 for an ambulance. Do NOT drive yourself to the hospital. * Ask your family members to learn CPR. * Learn to take your own blood pressure and pulse. Keep a record of your results. Ask your doctor when you should seek emergency medical attention. He or she will tell you which blood pressure reading is dangerous. Lifestyle Changes: * Maintain a healthy weight. Get help to lose any extra pounds. * Cut back on salt. * Limit canned, dried, packaged, and fast foods. * Don't add salt to your food. * Season foods with herbs instead of salt when you cook. * Break the smoking habit. Enroll in a stop-smoking program to improve your chances of success. * Limit fatty foods. * Ask your doctor about having your lipid levels checked regularly. * Build up your activity according to your doctor's recommendation. * Ask your doctor when it's okay to resume sexual activity. * Tell your doctor about any erectile dysfunction (ED) medication you are taking. Some ED medications are not safe if you take certain heart medications. * Try to manage stress. Follow Up: It is important for you to keep your follow up appointments with your medical provider. 05/24/2017 2:20 PM Mahendra Garcia DO General Internal Medicine [facility] Diet Patient's current hospital diet: AHA Diet (Heart Healthy) Discharge Diet Recommended Diet: AHA Diet (Heart Healthy) Procedures Procedures Performed: EGD Pending Studies Studies pending at discharge: no Laboratory Results Hemoglobin A1c Test 05/18/17 18:46 Range/Units Estimated Average Glucose 140 mg/dl Hemoglobin A1c 6.5 H 4.5-5.6 % Lipid Panel Test 05/18/17 18:46 Range/Units Triglycerides Level 349 H 0-150 mg/dl Cholesterol Level 154 0-200 mg/dl HDL Cholesterol 33 mg/dl LDL Cholesterol Direct 90 mg/dl Cholesterol/HDL Ratio 4.7 LDL Cholesterol, Calculated mg/dl Medical Emergencies . Who to Call and When: Medical Emergencies: If at any time you feel your situation is an emergency, please call 911 immediately. Call 911 immediately or go to your nearest Emergency Room if you experience any of the following: Warning Signs and Symptoms of a Heart Attack * Chest pain that is not relieved by medication * Shortness of breath . Non-Emergent Contact Non-Emergency issues call your: Primary Care Provider . . "Provider Documentation" section prepared by Alissa Gallo. . AMI Core Measures Reason no ASA as I/P: Treatment provided - N/A Reason no ASA at D/C: Treatment provided - N/A Reason no statin as I/P: Treatment provided - N/A Reason no statin at D/C: Treatment provided - N/A VTE Core Measure Inpt VTE Proph given/why not?: Unfractionated heparin SQ
[2017-05-23] MEDS ORDERED: POTASSIUM CHLORIDE 10 MEQ TABCR PO ONE (09:30)
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
--- NOTE | 2017-05-23 10:56 | CARDIOLOGY PROGRESS NOTE ---
DATE: 05/23/2017 SUBJECTIVE: Mr. Olivas is resting comfortably in bed without complaints of chest pain, dyspnea, palpitations, syncope or presyncope. OBJECTIVE: VITAL SIGNS: Blood pressure 128/84 with a regular pulse of 80. Respiratory rate is 18. The patient is afebrile at 36.8 degrees Celsius. Saturation 97% on 2 liters nasal cannula. NECK: Supple with full carotid upstrokes. There are no carotid bruits. Jugular venous pressure is flat at 90 degrees. There is no thyromegaly. CARDIOVASCULAR: Reveals a regular rhythm with normal S1 and S2. Heart sounds are distant. No obvious murmurs. LUNGS: Clear without rales, rhonchi or wheezes. ABDOMEN: Obese without bruits. EXTREMITIES: Reveal intact radial artery pulses bilaterally. Trace pretibial edema is noted. DATA: CBC notes hemoglobin of 10.2, hematocrit 30.8, white count 8.6, platelet count 193,000. Electrolytes note sodium of 140, potassium 3.4, chloride 103, bicarbonate 30, BUN 10, creatinine 0.75, glucose 135. general farmworker notes an occasional PVC and PAC. IMPRESSION AND PLAN: 1. Status post acute inferior wall myocardial infarction -- with sudden cardiac . Dr. Birmingham placed 2 drug-eluting stents in the posterior descending artery. He is stable on medical management at this time. 2. Status post cardiac arrest. 3. Hypertension -- controlled. 4. Diabetes mellitus. 5. Obstructive sleep apnea.
[2017-05-23 11:51] VITALS: BP 128/75; PULSE 76; TEMP 36.8; O2SAT 96
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
[2017-05-23 15:17] VITALS: BP 131/78; PULSE 79; TEMP 36.8; O2SAT 95
[2017-05-23 19:13] VITALS: BP 128/79; PULSE 82; TEMP 36.8; O2SAT 91
[2017-05-23 23:45] VITALS: O2SAT 99
[2017-05-24] VITALS (8 sets, daily range): BP systolic 116–142; BP diastolic 73–87; PULSE 73–91; TEMP 37–37.9; O2SAT 92–96
[2017-05-24 06:11] LABS: ARTERIAL BLD GAS O2 SATURATION 89.9 % (90-95); ARTERIAL BLOOD GAS BASE EXCESS 3.6 mEq/L (-9-1.8); ARTERIAL BLOOD GAS HCO3 28 mmol/L (19-24); ARTERIAL BLOOD GAS PO2 59 mm/Hg (80-95); ARTERIAL BLOOD GAS pH 7.47 (7.35-7.45)
[2017-05-24 06:13] LABS: ALLEN TEST POS (POS); O2 ADMINISTRATION RA
[2017-05-24 06:59] LABS: BUN/CREATININE RATIO 15.5 (10-20); CALCIUM 8.5 mg/dl (8.5-10.1); CREATININE 0.74 mg/dl (0.60-1.40); POTASSIUM 3.7 mmol/L (3.5-5.1)
[2017-05-24] MEDS: VALSARTAN 80 MG TAB PO SCH (07:42)
[2017-05-24] MEDS: ASPIRIN 81 MG ECTAB PO SCH (07:42)
[2017-05-24] MEDS: ALLOPURINOL 300 MG TAB PO SCH (07:42)
[2017-05-24] MEDS: OXYCODONE/ACETAMINOPHEN 5-325 TAB PO PRN (07:42)
[2017-05-24] MEDS: PANTOprazole SOD 40 MG TAB PO SCH ×2 (07:43→20:44)
[2017-05-24] MEDS: CLOPIDOGREL BISULFATE 75 MG TAB PO SCH (07:43)
[2017-05-24] MEDS: METOPROLOL SUCC 50MG EXT REL TAB PO SCH (07:43)
[2017-05-24] MEDS: ATORVASTATIN 40 MG TAB PO SCH (07:43)
--- NOTE | 2017-05-24 09:53 | CARDIOLOGY PROGRESS NOTE ---
DATE: 05/24/2017 SUBJECTIVE: The patient was seen by me this morning in the telemetry unit room. From a cardiac standpoint, he continues to do well. He denies any chest pain. No dyspnea at rest or with his activity. No orthopnea or PND. No palpitations, lightheadedness, syncope, or peripheral edema. No abdominal pain or nausea. No further symptoms of GI bleeding. No neurologic symptoms. No urinary complaints. His main complaint is pain in his knees and both lower legs. He also fell "stiff" in all of his joints this morning. He states that after receiving oxycodone and acetaminophen this morning his discomfort has improved. No neurologic complaints. No pain at his right radial catheterization site. CURRENT MEDICATIONS: Allopurinol 300 mg daily, metoprolol succinate ER 50 mg daily, valsartan 80 mg daily, pantoprazole 40 mg b.i.d., oxycodone/acetaminophen 5/325 one tab q. 4 hours as stated, aspirin 81 mg daily, clopidogrel 75 mg daily, atorvastatin 80 mg daily. ALLERGIES AND ADVERSE DRUG REACTIONS: None. PHYSICAL EXAMINATION: GENERAL: The patient is sitting in his chair by his bedside. No distress. VITAL SIGNS: Oral temperature this morning 37.1, pulse 73, blood pressure 135/77. While on BiPAP overnight, his oxygen saturation is 95%. NECK: Thick neck. There does not appear to be any jugular venous distention. LUNGS: Clear. Normal respiratory effort. No rales or wheezes. HEART: Regular rate and rhythm. S1, S2 normal. No S3 or S4. No murmur or rub. ABDOMEN: Soft. Nontender. Periumbilical hernia. This is reducible. No palpable masses or organomegaly. Normal bowel sounds. No bruits. EXTREMITIES: Swelling, left knee. The knees themselves are nontender on palpation. No erythema. Pretibial tenderness. 1+ left pretibial edema. Trace right pretibial edema. Right radial pulse strongly palpable. No bleeding or hematoma right radial catheterization site. DATA: Electrocardiogram May 21 revealed normal sinus rhythm, inferior AR, incomplete right bundle branch block, poor R-wave progression V1-V3. Minor nonspecific ST and T wave abnormalities. LABORATORY DATA: Labs today with sodium 138, potassium 3.7, chloride 103, carbon dioxide 29, BUN 12, creatinine 0.74, random glucose 124. CBC yesterday with WBC 8.69, hemoglobin 10.2, hematocrit 30.8, platelet count 193. On May 19, the hemoglobin was 11.0 and hematocrit 32.7. ASSESSMENT: 1. Status post acute inferior myocardial infarction 05/18/2017, secondary to acute occlusion of the proximal posterior descending artery, subsequent successful intervention to the posterior descending artery occlusion with deployment of 2 drug-eluting stents. The catheterization also revealed a total mid left circumflex occlusion. Unsuccessful attempt at passing the guidewire across this. The occlusion was felt to be a chronic total occlusion. 2. Cardiac arrest in the field secondary to the acute posterior descending artery occlusion. Successful out of hospital resuscitation including basic CPR followed by defibrillation. Since admission, no significant ventricular arrhythmias. 3. No post-percutaneous coronary intervention angina, left-sided heart failure, or significant arrhythmias. 4. No vascular complications at right radial catheterization site. 5. Upper gastrointestinal bleeding earlier in the hospital course. He underwent urgent esophagogastroduodenoscopy. This revealed no active bleeding. There was a clot in his stomach. He has had no further symptoms suggestive of active gastrointestinal bleeding. His hemoglobin is decreased but relatively stable since May 19. 6. Normal renal function post-procedure. 7. Sleep apnea. 8. Mild left ventricular systolic dysfunction. Overall, left ventricular ejection fraction 50%. RECOMMENDATIONS: 1. Increase valsartan to 160 mg daily. This was the patient's valsartan dose at the time of admission. 2. Increase metoprolol succinate ER to 100 mg daily. 3. Continue aspirin and clopidogrel. He should be on dual antiplatelet therapy for at least 1 year. 4. Continue atorvastatin 80 mg daily. The maximum atorvastatin dose is indicated in light of his coronary artery disease. 5. Continue to increase activity as tolerated. 6. The patient has a body habitus for obstructive sleep apnea. He was noted to have multiple events of significant oxygen desaturation while sleeping on bedside oximetry performed on May 21. The patient should be set up for outpatient CPAP or BiPAP. 7. The patient should have cardiology followup in 1-2 weeks following discharge. The patient and his states that they will likely be going to [place]. They have a home there. His has already arranged follow up with drum sander setter there. When the patient returns to living part-time in [place], he should have cardiology followup. As his primary care provider is in the [facility] system, it may be more practical for him to have cardiology followup in [place] with one of the [facility] cardiologists. 8. It is recommended the patient and his be given a copy of his chart at the time of discharge. They can take this with them to the drum sander setter in [place]. 9. No further cardiac recommendations or plans at this time.
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
--- NOTE | 2017-05-24 11:51 | Discharge Instructions ---
Discharge Instructions Date of Service May 24, 2017. Admission Reason for Admission: Acute Inferior Myocardial Infarction Discharge Discharge Diagnosis / Problem: ACUTE ANTERIOR/INFERIOR MYOCARDIAL INFARCTION/ LEFT KNEE Discharge Goals Goal(s): Increase independence, Improve disease control, Diagnostic testing, Therapeutic intervention Activity Recommendations Activity Level: Assistance Required Therapies: Physical Therapy, Occupational Therapy Weightbearing Status: Left weightbearing (as tolerated) Shower/Bathe: no limitations . Additional Information Patient informed of condition: Yes Advance Directives: No DNR: No Level of Care: Acute Rehab Communicable Disease: No Prognosis: Stable Arroyo Catheter: No Instructions / Follow-Up Instructions / Follow-Up NEED REFERRAL FOR SLEEP STUDY FOR OBSTRUCTED SLEEP APNEA /NEED CPAP CONTINUE TO ASPIRIN /PLAVIX UNINTERRUPTED FOR 1 YEAR CARDIOLOGY FOLLOW UP IN 1-2 WEEKS WILL NEED REFERRAL FOR CARDIAC REHAB NEED FOLLOW UP WITH ORTHOPEDICS IN 1-2 WEEKS FOR PAIN /SWELLING OF LEFT KNEE Current Hospital Diet Patient's current hospital diet: AHA Diet (Heart Healthy) Discharge Diet Recommended Diet: AHA Diet (Heart Healthy) Procedures Procedures Performed: EGD CARDIAC CATH S/P CHINMAY STENT X 2 PLACEMENT IN POSTERIOR DECENDING ARTERY Pending Studies Studies pending at discharge: no Laboratory Results Hemoglobin A1c Test 05/18/17 18:46 Range/Units Estimated Average Glucose 140 mg/dl Hemoglobin A1c 6.5 H 4.5-5.6 % Lipid Panel Test 05/18/17 18:46 Range/Units Triglycerides Level 349 H 0-150 mg/dl Cholesterol Level 154 0-200 mg/dl HDL Cholesterol 33 mg/dl LDL Cholesterol Direct 90 mg/dl Cholesterol/HDL Ratio 4.7 LDL Cholesterol, Calculated mg/dl Medical Emergencies . Who to Call and When: Medical Emergencies: If at any time you feel your situation is an emergency, please call 911 immediately. . Non-Emergent Contact Non-Emergency issues call your: Primary Care Provider . . "Provider Documentation" section prepared by Alissa Gallo. . Core Measure Problem Core Measures: AMI AMI Core Measures Reason no ASA as I/P: Treatment provided - N/A Reason no ASA at D/C: Treatment provided - N/A Reason no statin as I/P: Treatment provided - N/A Reason no statin at D/C: Treatment provided - N/A
[2017-05-24] MEDS: INDOMETHACIN 25 MG CAP PO PRN ×2 (12:25→20:45)
[2017-05-24] MEDS ORDERED: TPRSR50 PO (16:36)
--- NOTE | 2017-05-24 16:49 | Progress Note ---
Progress Note Date of Service May 24, 2017. Progress Note ATTENDING NOTE ; Pt. accepted to [facility]. pending insurance Auth Plan to transfer to Rehab tomorrow Family will provide transport Pt was taking Lamisil for toe nail fungal infection D/w Dr Birmingham -due to significant drug interaction , risk for prolong Qtc , Lamisil needs to be discontinued Left knee pain improved after starting on indomethacin -Possible acute gouty arthritis ? had low grade fever -no focus of infection noted , no cough , no urinary symptom Left knee swelling and warmth improved, able to bear wt to transfer cont to monitor no indication for antibiotic treatment
[2017-05-25] MEDS: OXYCODONE/ACETAMINOPHEN 5-325 TAB PO PRN ×2 (00:04→12:20)
[2017-05-25 00:08] VITALS: BP 129/78; PULSE 76; TEMP 37; O2SAT 90
[2017-05-25 00:10] VITALS: O2SAT 90
[2017-05-25 01:10] VITALS: PULSE 76; O2SAT 100
[2017-05-25 04:00] VITALS: BP 140/85; PULSE 71; TEMP 36.8; O2SAT 96; O2SAT 97
[2017-05-25 07:05] VITALS: BP 134/82; PULSE 78; TEMP 36.9; O2SAT 93
[2017-05-25] MEDS: ALLOPURINOL 300 MG TAB PO SCH (08:26)
[2017-05-25] MEDS: PANTOprazole SOD 40 MG TAB PO SCH (08:27)
[2017-05-25] MEDS: ATORVASTATIN 40 MG TAB PO SCH (08:27)
[2017-05-25] MEDS: ASPIRIN 81 MG ECTAB PO SCH (08:27)
[2017-05-25] MEDS: CLOPIDOGREL BISULFATE 75 MG TAB PO SCH (08:27)
[2017-05-25] MEDS: INDOMETHACIN 25 MG CAP PO PRN (08:53)
[2017-05-25] MEDS ORDERED: VALSARTAN 80 MG TAB PO SCH (09:00)
[2017-05-25] MEDS ORDERED: METOPROLOL SUCC 50MG EXT REL TAB PO SCH (09:00)
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
[2017-05-25 11:21] VITALS: BP 134/82; PULSE 78; TEMP 36.9; O2SAT 93
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
== END 2017-05-25 12:30 | DRG 246 ==
LOC: EDBD 18:38 → C.EDB 18:39 → C.2E 19:25 → ENRESERV 21:28 → C.MSICU 21:30 → C.2E 05-20 15:50
PROVIDERS: ADMIT Internal Medicine Cardiovascular Disease; ATTEND Family Medicine
PROC: 5A1935Z Respiratory Ventilation, Less than 24 Consecutive Hours (ICD-10-PCS; 2017-05-18)
PROC: 4A023N7 Measurement of Cardiac Sampling and Pressure, Left Heart, Percutaneous Approach (ICD-10-PCS; principal; 2017-05-18 19:04)
PROC: 027035Z Dilation of Coronary Artery, One Artery with Two Drug-eluting Intraluminal Devices, Percutaneous Approach (ICD-10-PCS; principal; 2017-05-18 19:04)
PROC: B211YZZ Fluoroscopy of Multiple Coronary Arteries using Other Contrast (ICD-10-PCS; principal; 2017-05-18 19:04)
PROC: 02HV33Z Insertion of Infusion Device into Superior Vena Cava, Percutaneous Approach (ICD-10-PCS; 2017-05-19)
PROC: 0DJ08ZZ Inspection of Upper Intestinal Tract, Via Natural or Artificial Opening Endoscopic (ICD-10-PCS; 2017-05-19)
DX: I21.19 ST elevation (STEMI) myocardial infarction involving other coronary artery of inferior wall (principal); I46.2 Cardiac arrest due to underlying cardiac condition; J96.00 Acute respiratory failure, unspecified whether with hypoxia or hypercapnia; K31.82 Dieulafoy lesion (hemorrhagic) of stomach and duodenum; J69.0 Pneumonitis due to inhalation of food and vomit; S32.019A Unspecified fracture of first lumbar vertebra, initial encounter for closed fracture; Z68.41 Body mass index [BMI] 40.0-44.9, adult; S00.03XA Contusion of scalp, initial encounter; G47.33 Obstructive sleep apnea (adult) (pediatric); M25.562 Pain in left knee; M25.462 Effusion, left knee; M1A.9XX0 Chronic gout, unspecified, without tophus (tophi); E78.5 Hyperlipidemia, unspecified; E66.01 Morbid (severe) obesity due to excess calories; I25.10 Atherosclerotic heart disease of native coronary artery without angina pectoris; E03.9 Hypothyroidism, unspecified; I11.9 Hypertensive heart disease without heart failure; N52.9 Male erectile dysfunction, unspecified; Z79.899 Other long term (current) drug therapy; Z87.442 Personal history of urinary calculi; Z82.49 Family history of ischemic heart disease and other diseases of the circulatory system; V67.5XXA Driver of heavy transport vehicle injured in collision with fixed or stationary object in traffic accident, initial encounter; Y93.I9 Activity, other involving external motion; Y92.481 Parking lot as the place of occurrence of the external cause; Y99.8 Other external cause status